=== PATIENT | female | born 1950 | race Caucasian/White ===

== ENCOUNTER → 2021-09-17 09:41 | Outpatient (BNVA) | payer MEDICARE, OTHER, SELFPAY | PROVIDERS: Family Provider Electrodiagnostic Medicine; PCP Electrodiagnostic Medicine; Visit Provider Family Medicine | DX: E03.9 Hypothyroidism, unspecified (principal) | CPT/HCPCS: 80053; 80061; 84439; 84443; 85025 ==

== ENCOUNTER 2021-10-04 06:00 | Outpatient (RCR) | payer MEDICARE, OTHER, SELFPAY | END 2021-10-11 23:59 | disposition home or self-care (01) | LOC: GPT 06:00 | PROVIDERS: PCP Electrodiagnostic Medicine; Referring Provider Family Medicine; Visit Provider Family Medicine | DX: M47.816 Spondylosis without myelopathy or radiculopathy, lumbar region (principal) | CPT/HCPCS: 97110; 97162 ==

== ENCOUNTER 2022-10-28 10:31 | Outpatient (CLI) | payer MEDICARE, OTHER, SELFPAY ==
--- NOTE | 2022-10-28 10:56 | XR_ITS ---
WS: [id number] Thoracic spine, 3 views, 10/28/2022 Clinical Data: PAIN IN TSPINE Comparison: None. Findings: No compression fractures are seen. The disc heights are normal. There is a minimal dextroscoliosis. There is mild osteoarthritic spurring of the thoracic vertebral bodies. There are clips in the right upper quadrant from a cholecystectomy. XR/XR thoracic spine 3V* [id number] Impression: Dextroscoliosis with minimal osteoarthritis of the thoracic vertebral bodies.
== END 2022-10-28 10:32 | disposition home or self-care (01) ==
PROVIDERS: PCP Electrodiagnostic Medicine; Visit Provider Nurse Practitioner
DX: M54.6 Pain in thoracic spine (principal); M41.84 Other forms of scoliosis, thoracic region
CPT/HCPCS: 72072

== ENCOUNTER 2022-12-19 09:38 | Outpatient (CLI) | payer MEDICARE, OTHER, SELFPAY ==
--- NOTE | 2022-12-19 | MR_ITS ---
WS: [id number] MRI THORACIC SPINE with and without contrast. HISTORY: Mid back pain for one year. Abnormal radiograph as per history. COMPARISON: Radiograph 10/28/2019. TECHNIQUE: Multiplanar sequences are performed in sagittal and axial planes. MultiHance 13 mL IV. Mild cervical spondylosis. Increase in thoracic kyphosis with mild RIGHT curvature and scoliosis thoracic spine. No acute marrow edema. No fractures. Disc spaces are mildly narrowed and desiccated throughout the thoracic spine. S mall hypertrophic endplate osteophytes. Signal within the cord is normal. Post contrast imaging is ne gative for enhancement. T1-2: Mild LEFT facet arthritis and foraminal narrowing. Very tiny central disc protrusion. T2-3: Mild foraminal narrowing and facet arthritis. T3-4: Mild bilateral facet joint arthritis and foraminal narrowing. T4-5: Moderate RIGHT facet arthritis. Mild foraminal narrowing. T5-6: Normal. T6-7: Normal. T7-8: Bilateral moderate facet arthritis. Mild LEFT foraminal stenosis. T8-9: Moderate bilateral facet joint arthritis. Mild LEFT foraminal stenosis. T9-10: Moderate facet joint arthritis encroaching towards the thecal sac. Mild disc bulging. There i s a shallow LEFT foraminal disc protrusion. Moderate LEFT and mild RIGHT foraminal stenosis. T10-11: Bilateral facet joint arthritis, LEFT greater than RIGHT. Mild foraminal stenosis. T11-12: Bilateral moderate facet joint arthritis with foraminal narrowing. T12-L1: Moderate bilateral facet joint arthritis. L1-2: Moderate annular disc bulging and facet arthritis. Suspect component of stenosis centrally at L 1-2. Similar findings noted at L2-3. No axial imaging performed of either of these levels during this thoracic spine MRI. MR/MR thoracic spine wo/w [id number] IMPRESSION: 1. Mild to moderate spondylitic changes throughout the thoracic spine. No high -grade central or foraminal stenosis. 2. Multilevel facet joint arthritis. Most significant in the lower thoracic sp ine. 3. No enhancing masses. 4. Component of central stenosis is likely at L1-2 and L2-3. These levels are incompletely visualized on this thoracic MRI. Consider follow-up MRI lumbar spi ne.
[2022-12-19] MEDS: gadobenate dimeglumine 20 mL vial IV (10:32)
== END 2022-12-19 09:39 | disposition home or self-care (01) ==
PROVIDERS: PCP Nurse Practitioner; Visit Provider Nurse Practitioner
DX: Z98.1 Arthrodesis status (principal); R93.7 Abnormal findings on diagnostic imaging of other parts of musculoskeletal system
CPT/HCPCS: 72157; A9577

== ENCOUNTER → 2023-09-13 10:08 | Outpatient (BNVA) | payer MEDICARE, OTHER, SELFPAY | PROVIDERS: PCP Nurse Practitioner; Visit Provider Nurse Practitioner | DX: M25.551 Pain in right hip (principal) | CPT/HCPCS: 73502 ==

== ENCOUNTER 2023-09-20 12:39 | Outpatient (CLI) | payer MEDICARE, OTHER, SELFPAY ==
--- NOTE | 2023-09-20 12:44 | XR_ITS ---
WS: [id number] SCREENING DEXA SCAN [place] CLINICAL INFORMATION: POST MENOPAUSAL COMPARISON: None. FINDINGS: The LEFT forearm bone mineral density measures 0.887. This corresponds to a T score score of 0.1 and Z score of 2.4. Left femoral neck bone mineral density measures 1.128 g/cm2. This corresponds to a T score of 1.0 and Z score of 2.8. Right femoral neck bone mineral density measures 1.153 g/cm2. This corresponds to a T score 1.2of and Z score of 3.0. Mean femoral neck bone mineral density measures 1.141 g/cm2. This corresponds to a T score of 1.1 and Z score of 2.9. IMPRESSION: Normal bone mineralization. Patient's FRAX calculated 10 year probability for major osteoporotic fracture is 6.8% and osteoporoti c hip fracture is 0.5%.
== END 2023-09-20 12:40 | disposition home or self-care (01) ==
LOC: RAD 12:39
PROVIDERS: PCP Nurse Practitioner; Visit Provider Nurse Practitioner
DX: Z13.820 Encounter for screening for osteoporosis (principal); Z78.0 Asymptomatic menopausal state
CPT/HCPCS: 77080